=== PATIENT | male | born 1990 | race African-American/Black ===

== ENCOUNTER 2025-02-13 11:58 | Emergency (ER) | payer OTHER ==
[2025-02-13 12:05] VITALS: BP 129/84; PULSE 78; RESP 19; TEMP 99.3; BMI 31.2
[2025-02-13] MEDS ORDERED: ALBUTEROL SO4 2.5/IPRATROPIUM 0.5 INH SOL 3 ML VIAL.NEB. NEB ONE (13:04)
[2025-02-13] MEDS ORDERED: guaiFENesin/D-METHORPHAN HB 10 ML UNIT-DOSE CUPS ONE (13:04)
[2025-02-13] MEDS: guaiFENesin/D-METHORPHAN HB 10 ML UNIT-DOSE CUPS PO ONE (13:07)
[2025-02-13] MEDS: ALBUTEROL SO4 2.5/IPRATROPIUM 0.5 INH SOL 3 ML VIAL.NEB. NEB ONE (13:07)
== END 2025-02-13 15:02 | disposition home or self-care (01) ==
LOC: JERFT 11:58
PROC: 3E0F7GC Introduction of Other Therapeutic Substance into Respiratory Tract, Via Natural or Artificial Opening (ICD-10-PCS; principal; 2025-02-13)
DX: J45.901 Unspecified asthma with (acute) exacerbation (principal); R09.82 Postnasal drip; R05.9 Cough, unspecified; J06.9 Acute upper respiratory infection, unspecified; R07.89 Other chest pain
CPT/HCPCS: 0241U-QW; 71046-TC-FY; 99284-25

== ENCOUNTER 2025-02-19 16:11 | Emergency (ER) | payer OTHER ==
[2025-02-19 16:20] VITALS: BP 124/61; PULSE 73; RESP 19; TEMP 98.5; BMI 25.0
== END 2025-02-19 18:40 | disposition home or self-care (01) ==
LOC: JERFT 16:11
DX: J01.90 Acute sinusitis, unspecified (principal); J06.9 Acute upper respiratory infection, unspecified; R09.81 Nasal congestion; R05.9 Cough, unspecified
CPT/HCPCS: 87651; 99283-25